=== PATIENT | male | born 1995 | race Caucasian/White ===

== ENCOUNTER 2017-04-21 17:26 | Emergency (ER) | payer OTHER ==
[~2017-04-21] VITALS: Ht 190.5 cm; Wt 113.4 kg
[~2017-04-21 17:26] MED LIST: AZIT250T74 PO; MULT-65 PO
[2017-04-21 17:28] VITALS: BP 163/103; PULSE 96; RESP 18; TEMP 99.5; O2SAT 99
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
[2017-04-21] MEDS ORDERED: CYCL1TAB29 PO (19:30)
== END 2017-04-21 19:38 | disposition home or self-care (01) ==
LOC: PHEFT 17:26
DX: S16.1XXA Strain of muscle, fascia and tendon at neck level, initial encounter (principal); S09.90XA Unspecified injury of head, initial encounter; V49.88XA Car occupant (driver) (passenger) injured in other specified transport accidents, initial encounter
CPT/HCPCS: 70450; 72125; 99285; L0150